=== PATIENT | female | born 1935 | race Caucasian/White ===

== ENCOUNTER 2022-01-05 15:42 | Observation (INO) | payer OTHER ==
[~2022-01-05] VITALS: Ht 139.7 cm; Wt 61.7 kg
[2022-01-05 15:51] VITALS: BP 134/53
--- NOTE | 2022-01-05 15:58 | NUR ---
PT AMBULATED TO BED 07. ASSISTED BY CATIE MUJICA.
--- NOTE | 2022-01-05 16:36 | NUR ---
Dr. Dawson evaluating patient at bedside.
--- NOTE | 2022-01-05 16:44 | NUR ---
LAB AT BEDSIDE.
--- NOTE | 2022-01-05 16:53 | NUR ---
X-RAY AT BEDSIDE.
[2022-01-05 16:57] LABS: BASOPHILS # (AUTO) 0.1 K/uL (0.00-0.22); BASOPHILS % (AUTO) 0.8 % (0.0-2.0); EOSINOPHILS # (AUTO) 0.4 K/uL (0-0.4); EOSINOPHILS % (AUTO) 5.2 % (0.0-4.0); HEMATOCRIT 36.1 % (36-48); HEMOGLOBIN 11.6 g/dL (12.0-16.0); LYMPHOCYTES # (AUTO) 1.8 K/uL (2.5-16.5); LYMPHOCYTES % (AUTO) 24.7 % (20.5-51.1); MEAN CORPUSCULAR HEMOGLOBIN 30 pg (27-31); MEAN CORPUSCULAR HGB CONC 32 g/dL (33-37); MEAN CORPUSCULAR VOLUME 93.2 fL (80-94); MONOCYTES # (AUTO) 0.8 K/uL (0.8-1.0); MONOCYTES % (AUTO) 11.2 % (1.7-9.3); NEUTROPHILS # (AUTO) 4.3 K/uL (1.8-7.7); NEUTROPHILS % (AUTO) 58.1 % (42.2-75.2); PLATELET COUNT (AUTO) 276 K/uL (140-450); RED BLOOD CELL COUNT(AUTO) 3.88 MIL/uL (4.20-5.40); RED CELL DISTRIBUTION WIDTH 15.6 % (11.6-13.7); WHITE BLOOD COUNT (AUTO) 7.4 K/uL (4.8-10.8)
[2022-01-05 17:22] LABS: ANION GAP 12.1 (8-16); ASPARTATE AMINOTRANSFERASE 14 U/L (15-37); CARBON DIOXIDE 25.2 mmol/L (21-32); CHLORIDE 107 mmol/L (98-107); CREATININE 1.5 mg/dL (0.6-1.3); GLUCOSE 135 mg/dL (74-106); POTASSIUM 4.3 mmol/L (3.5-5.1); SODIUM SERUM 140 mmol/L (136-145); TOTAL BILIRUBIN 0.2 mg/dL (0.0-1.0); UREA NITROGEN, BLOOD 22 mg/dL (7-18)
[2022-01-05] MEDS ORDERED: CIPR500T4 PO (19:08)
[2022-01-05] MEDS ORDERED: GABA100C PO (19:08)
[2022-01-05] MEDS ORDERED: HYDR-4004 PO (19:08)
[2022-01-05] MEDS ORDERED: DIPH50CA69 PO (19:08)
[2022-01-05] MEDS ORDERED: CARV6.25 PO (19:08)
[2022-01-05] MEDS ORDERED: AMLO10TA89 PO (19:08)
[2022-01-05] MEDS ORDERED: OMEP20EC11 PO (19:08)
[2022-01-05] MEDS ORDERED: CLOP75TA55 PO (19:08)
--- NOTE | 2022-01-05 19:08 | NUR ---
Med recon done
[2022-01-05] MEDS ORDERED: ACETAMINOPHEN 325 MG TAB PO PRN (19:10)
[2022-01-05] MEDS ORDERED: ONDANSETRON 4 MG/2 ML VIAL IVP PRN (19:10)
--- NOTE | 2022-01-05 19:25 | NUR ---
Report given to CATIE Back for transfer of care.
--- NOTE | 2022-01-05 20:07 | NUR ---
Patient will be admitted to care of Harpreet HADDAD. Admited to [facility]. Will go to room 121A. Belongings list completed. Report to [facility] nurse Harpreet HADDAD. [facility] verbalized understanding of report, no further questions.
[2022-01-05 20:15] VITALS: BP 152/72
--- NOTE | 2022-01-05 20:15 | NUR ---
Received report from ER nurse Wong.Admitted from ER with chief complaint of LEG PAIN , 86 y/o ,Female, Cooperative, Uzbek speaking, awake, alert and oriented.On room air, breathing equal and unlabored.iv on l ac , g20, heplocked.MRSA swab done. wound on l ankle, dressing dry and intact. pictures taken. wound consul ordered. Pt ambulatory with steady gait. oriented to call light, bed, phone,television, bathroom, smoking policy, visiting hours, procedures, ID bracelet on. Belongings list checked.will continue to monitor.
[2022-01-05] MEDS: APIXABAN 2.5 MG TAB PO SCH (21:36)
[2022-01-05] MEDS: GABAPENTIN 100 MG CAP PO SCH (21:37)
[2022-01-05] MEDS: carvediloL 6.25 MG TAB PO SCH (21:37)
--- NOTE | 2022-01-05 21:37 | NUR ---
due medications given as ordered, tolerated well.
--- NOTE | 2022-01-05 22:30 | NUR ---
PATIENT AMBULATED TO THE BATHROOM WITH STEADY GAIT, VOIDED WITHOUT DIFFICULTY. MADE COMFORTABLE IN BED. CALL LIGHT IN REACH.
--- NOTE | 2022-01-06 00:08 | NUR ---
PATIENT ASLEEP. NO S/SX OF PAIN NOR DISCOMFORT. CALL LIGHT IN REACH.
--- NOTE | 2022-01-06 04:00 | NUR ---
VITAL SIGNS TAKEN AND RECORDED. PATIENT DENIES PAIN.
[2022-01-06 04:45] VITALS: BP 138/74
[2022-01-06 05:53] LABS: BASOPHILS # (AUTO) 0.1 K/uL (0.00-0.22); BASOPHILS % (AUTO) 0.6 % (0.0-2.0); EOSINOPHILS # (AUTO) 0.5 K/uL (0-0.4); EOSINOPHILS % (AUTO) 5.7 % (0.0-4.0); HEMATOCRIT 36.1 % (36-48); HEMOGLOBIN 11.7 g/dL (12.0-16.0); LYMPHOCYTES # (AUTO) 2.2 K/uL (2.5-16.5); LYMPHOCYTES % (AUTO) 26.9 % (20.5-51.1); MEAN CORPUSCULAR HEMOGLOBIN 30 pg (27-31); MEAN CORPUSCULAR HGB CONC 32 g/dL (33-37); MEAN CORPUSCULAR VOLUME 92.9 fL (80-94); MONOCYTES # (AUTO) 0.8 K/uL (0.8-1.0); MONOCYTES % (AUTO) 10.1 % (1.7-9.3); NEUTROPHILS # (AUTO) 4.6 K/uL (1.8-7.7); NEUTROPHILS % (AUTO) 56.7 % (42.2-75.2); PLATELET COUNT (AUTO) 259 K/uL (140-450); RED BLOOD CELL COUNT(AUTO) 3.89 MIL/uL (4.20-5.40); RED CELL DISTRIBUTION WIDTH 15.3 % (11.6-13.7); WHITE BLOOD COUNT (AUTO) 8.1 K/uL (4.8-10.8)
--- NOTE | 2022-01-06 06:18 | NUR ---
PATIENT IS AWAKE,ALERT AND ORIENTED. ALL NEEDS ATTENDED TO. NO DISTRESS NOTED. SAFETY PRECAUTIONS MAINTAINED DURING THE SHIFT, CALL LIGHT REMAINED WITHIN REACH.
[2022-01-06 06:36] LABS: ALBUMIN 2.8 g/dL (3.4-5.0); ASPARTATE AMINOTRANSFERASE 13 U/L (15-37); CARBON DIOXIDE 26.3 mmol/L (21-32); CHLORIDE 108 mmol/L (98-107); CREATININE 1.2 mg/dL (0.6-1.3); GLUCOSE 85 mg/dL (74-106); POTASSIUM 4.3 mmol/L (3.5-5.1); SODIUM SERUM 143 mmol/L (136-145); TOTAL BILIRUBIN 0.3 mg/dL (0.0-1.0); UREA NITROGEN, BLOOD 19 mg/dL (7-18)
--- NOTE | 2022-01-06 07:20 | NUR ---
RECEIVED PT FROM NIGHT RN, PT IS ALERT, AWAKE AND ORIENTED, YI SPEAKING, ON ROOM AIR, IV LINE NOTED ON THE LEFT AC G. 20 ON SALINE, LOCK, NO SIGN OF DISTRESS NOTED AND WILL MONITOR PT.
[2022-01-06 08:00] VITALS: BP 135/51
[2022-01-06] MEDS ORDERED: PANTOPRAZOLE 40 MG TABEC PO SCH (09:00)
[2022-01-06] MEDS ORDERED: amLODIPine 5 MG TAB PO SCH (09:00)
[2022-01-06] MEDS: APIXABAN 2.5 MG TAB PO SCH (09:21)
[2022-01-06] MEDS: GABAPENTIN 100 MG CAP PO SCH (09:21)
[2022-01-06] MEDS: carvediloL 6.25 MG TAB PO SCH (09:22)
--- NOTE | 2022-01-06 09:22 | NUR ---
PT WAS GIVEN THE SCHEDULED AM MEDICATIONS NOW, TOLERATED
[2022-01-06] MEDS ORDERED: APIX2.5 PO (09:55)
--- NOTE | 2022-01-06 13:00 | NUR ---
WOUND ASSESSMENT WAS DONE TO PT'S LEFT ANKLE, CLEANED AND WAS REINFORCED WITH DRESSING AND PICTURE WAS ATTACHED TO CHART.
--- NOTE | 2022-01-06 13:28 | NUR ---
DISCHARGED INSTRUCTIONS WAS GIVEN TO PT PER [facility]ER ON CALL [place], #[phone] AND PT VERBALIZED UNDERSTANDING.
--- NOTE | 2022-01-06 14:45 | NUR ---
DISCHARGED PT TO HOME ACCOMPANIED BY DAUGHTER, DISCHARGE INSTRUCTIONS WERE GIVEN TO PT AND VERBALIZED UNDERSTANDING., IV LINE WAS REMOVED AND PT IS [place] AT THIS TIME.
== END 2022-01-06 14:45 | disposition home or self-care (01) ==
LOC: MED 15:42 → MTU 19:10
PROVIDERS: ADMIT Hospitalist; ATTEND Hospitalist
DX: I82.402 Acute embolism and thrombosis of unspecified deep veins of left lower extremity (principal); Z20.822 Contact with and (suspected) exposure to COVID-19; I10 Essential (primary) hypertension; K21.9 Gastro-esophageal reflux disease without esophagitis; G62.9 Polyneuropathy, unspecified; E78.5 Hyperlipidemia, unspecified; N17.9 Acute kidney failure, unspecified; Z88.0 Allergy status to penicillin; Z79.899 Other long term (current) drug therapy
CPT/HCPCS: 36415; 73610; 80053; 85025; 85651; 85730; 86140; 87081; 87426; 93005; 99285; G0378; Q0163